=== PATIENT | male | born 1965 | race Hispanic/Latino ===

== ENCOUNTER 2018-08-10 17:03 | Emergency (ER) | payer SELFPAY ==
[2018-08-10] MEDS ORDERED: KETOROLAC 30 MG/ML INJ ONE (18:07)
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
== END 2018-08-10 19:28 | disposition home or self-care (01) ==
LOC: ER 17:03
DX: S16.1XXA Strain of muscle, fascia and tendon at neck level, initial encounter (principal); V59.49XA Driver of pick-up truck or van injured in collision with other motor vehicles in traffic accident, initial encounter; F17.210 Nicotine dependence, cigarettes, uncomplicated
CPT/HCPCS: 70450; 72125; 72128; 72131; 96372; 99284